=== PATIENT | male | born 1950 | race Caucasian/White ===

== ENCOUNTER 2018-04-28 23:51 | Emergency (ER) | payer MEDICARE, OTHER ==
[~2018-04-28] VITALS: Ht 170.2 cm; Wt 63.5 kg
[~2018-04-28 23:51] MED LIST: CIPRO500 MG PO; CIPROFLOXACIN500 M2 ORAL; COLACE100 MG ORAL; EDARBI40 MG ORAL; HYDROCODON-ACE1 EA15 ORAL; IBUPROFEN600 MG ORAL; KEFLEX500 MG ORAL; NORCO 5-325 TA1 EACH ORAL; PHENAZOPYRIDIN100 MG ORAL; VICODIN 5-5001 EACH PO; ZOFRAN ODT4 MG ORAL
[2018-04-28] MEDS ORDERED: UNOBMED (23:59)
[2018-04-29] MEDS ORDERED: Tetanus/Diptheria/Pertussis Vaccine 0.5ml Syr IM ONE (00:45)
[2018-04-29 02:00] VITALS: BP 122/75
[2018-04-29 04:00] VITALS: BP 129/67
[2018-04-29 05:50] VITALS: BP 129/67
--- NOTE | 2018-04-29 10:26 | Diagnostic Imaging Report ---
Indications: Pain, trauma Technique: Spiral acquisitions obtained through the brain. Angled axial and coronal 5 x 5 mm slices were reconstructed. Total dose length product 1453.5 mGycm. CTDI vol(s) 70.38 mGy. Dose reduction achieved using automated exposure control Comparison: None. Findings: There is age-related enlargement of the ventricles and extra axial CSF spaces. No acute intercranial hemorrhage nor edema, mass effect, nor midline shift. Normal lucas-white differentiation. The calvarium is intact. There is extensive sinus disease. The mastoids are clear. The visualized orbits are unremarkable. Impression: Age-related volume loss. Negative for acute intracranial bleed or mass effect Extensive sinus disease This agrees with the preliminary interpretation provided overnight by [facility]. The CT scanner at [facility] is accredited by the [employer] and the scans are performed using protocols designed to limit radiation exposure to as low as reasonably achievable to attain images of sufficient resolution adequate for diagnostic evaluation.
--- NOTE | 2018-04-29 10:29 | Diagnostic Imaging Report ---
Indications: Pain in forehead after falling Technique: Spiral images obtained through the facial bones. No IV contrast utilized. Multiplanar reconstructions were generated.Total dose length product 780 mGycm. CTDIvol(s) 28 mGy. Dose reduction achieved using automated exposure control Comparison: none Findings: There is minimal bilateral periorbital soft tissue swelling. No acute fractures. There is extensive sinonasal polyposis. There is chronic periosteal thickening of the bilateral maxillary sinus wooten. The optic globes and retroseptal orbits are unremarkable. The mastoids are clear. The posterior nasopharynx, oropharynx, hypopharynx are all unremarkable. The dentition is intact. Impression: No acute bony trauma. Extensive sinonasal polyposis This agrees with the preliminary interpretation provided overnight by [facility]. The CT scanner at [facility] is accredited by the [employer] and the scans are performed using protocols designed to limit radiation exposure to as low as reasonably achievable to attain images of sufficient resolution adequate for diagnostic evaluation.
--- NOTE | 2018-04-29 15:07 | Diagnostic Imaging Report ---
Clinical Indication:Pain in left wrist after falling Technique: 3 views of the left wrist Comparison: None Findings: No acute fractures. No dislocations. The joint spaces are preserved. Impression: Negative
--- NOTE | 2018-04-29 16:51 | Diagnostic Imaging Report ---
Indication: Pain status post fall Technique: 3 views left hand Comparison: none Findings: Positioning is suboptimal; per technologist, patient unable to cooperate fully. There is old healed fracture deformity of the fifth metacarpal shaft. No definite acute fractures. No dislocations. The joint spaces are preserved. Impression: Limited exam. No definite acute process
--- NOTE | 2018-04-29 21:32 | Emergency Room Report ---
History of Present Illness General Chief Complaint: Multiple Trauma/Fall Source: Patient Present Illness HPI 68-year-old male presents to ED for evaluation. Patient brought in by EMS status post trip and fall. Presents with abrasions to face. Complaining of bilateral wrist pain and hand pain. Throbbing, 8 out of 10, nonradiating. Denies photophobia or nausea or vomiting. Denies neck pain. Admits to alcohol use. Denies drug use. No other aggravating relieving factors. Denies any other associated symptoms Allergies: Coded Allergies: NSAIDS (NON-STEROIDAL ANTI-INFLAMMA (Verified Allergy, Severe, sob and hives, 05/07/13) Uncoded Allergies: steroids (Allergy, Mild, rash diff breathing, 12/01/12) Patient History Past Medical History: HTN, other - kidney stones Past Surgical History: none Pertinent Family History: none Social History: Denies: smoking, alcohol use, drug use Immunizations: UTD Reviewed Nursing Documentation: PMH: Agreed; PSxH: Agreed Nursing Documentation-PMH Past Medical History: No History, Except For Hx Cardiac Problems: Yes - heart valve replacement Hx Hypertension: Yes Hx Gastrointestinal Problems: Yes - kidney stones Review of Systems All Other Systems: negative except mentioned in HPI Physical Exam Vital Signs Date Time Temp Pulse Resp B/P (MAP) Pulse Ox O2 Delivery O2 Flow Rate FiO2 04/28/18 23:55 98.1 94 16 115/69 97 Room Air Sp02 EP Interpretation: reviewed, normal General Appearance: no apparent distress, alert, GCS 15, non-toxic Head: normocephalic, other - multiple superficial abrasions to face Eyes: bilateral eye normal inspection, bilateral eye PERRL ENT: hearing grossly normal, normal pharynx, no angioedema, normal voice Neck: full range of motion, no bony tend, supple/symm/no masses Respiratory: chest non-tender, lungs clear, normal breath sounds, speaking full sentences Cardiovascular #1: normal inspection Gastrointestinal: normal inspection Rectal: deferred Genitourinary: no CVA tenderness Musculoskeletal: tender - bilateral wrist Neurologic: alert, oriented x3, responsive, motor strength/tone normal, sensory intact, speech normal Psychiatric: judgement/insight normal, memory normal, mood/affect normal, no suicidal/homicidal ideation Skin: normal inspection Lymphatic: normal inspection Procedures Splinting Splinting : Consent: Verbal Pre-Made Type: velcro Splint: wrist - bilateral Pre-Proc Neuro Vasc Exam: normal Post-Proc Neuro Vasc Exam: normal Patient Tolerated: Well Complications: None Medical Decision Making Diagnostic Impression: Primary Impression: Wrist injury Qualified Codes: S69.90XA - Unspecified injury of unspecified wrist, hand and finger(s), initial encounter Additional Impression: Head injury Qualified Codes: S09.90XA - Unspecified injury of head, initial encounter ER Course Hospital Course 68 yo M presents with multiple abrasions to face, bilatearl wrist pain s/p fall Differential diagnoses include: Fracture, dislocation, sprain, contusion Clinical course Patient placed on stretcher. After initial history and physical, I ordered pain medications, TDAP and imaging studies CT head/facial - no acute process Xrays prelim read shows no acute fracture/dislocation. Healing fracture of the left fifth metacarpal. Patient is ambulating with steady gait. Wounds cleaned. Placed in bilateral wrist splints. Safe for discharge with close outpatient follow-up Diagnosis - wrist injury, head injury Stable and discharged to home. apply ice, keep elevated. weight bear as tolerated. Followup with PMD. Return to ED if symptoms recur or worsen Other X-Ray Diagnostic Results Other X-Ray Diagnostic Results #1: X-Ray ordered: R hand # of Views/Limited Vs Complete: 3 View Indication: Pain EP Interpretation: Yes Interpretation: no dislocation, no soft tissue swelling, no fractures Impression: No acute disease Electronically Signed by: Electronically signed by Eris Capps MD Other X-Ray Diagnostic Results #2: X-Ray ordered: R wrist # of Views/Limited Vs Complete: 3 View Indication: Pain EP Interpretation: Yes Interpretation: no dislocation, no soft tissue swelling, no fractures Impression: No acute disease Electronically Signed by: Electronically signed by Eris Capps MD Other X-Ray Diagnostic Results #3: X-Ray ordered: L wrist # of Views/Limited Vs Complete: 3 View Indication: Pain EP Interpretation: Yes Interpretation: no dislocation, no soft tissue swelling, no fractures Impression: No acute disease Electronically Signed by: Electronically signed by Eris Capps MD Other X-Ray Diagnostic Results #4: X-Ray ordered: L hand # of Views/Limited Vs Complete: 3 View Indication: Pain EP Interpretation: Yes Interpretation: no dislocation, no soft tissue swelling Impression: Other - healing fx L 5th metacarpal Electronically Signed by: Electronically signed by Eris Capps MD CT/MRI/US Diagnostic Results CT/MRI/US Diagnostic Results #1: Imaging Test Ordered: CT Head Impression no acute process CT/MRI/US Diagnostic Results #2: Imaging Test Ordered: CT Facial Bones Impression no acute process Last Vital Signs Date Time Temp Pulse Resp B/P (MAP) Pulse Ox O2 Delivery O2 Flow Rate FiO2 04/29/18 05:50 98.4 78 16 129/67 98 Room Air Status: improved Disposition: HOME, SELF-CARE Condition: Stable Patient Instructions: Head Injury, Adult, [id number] Eris Capps MD Apr 29, 2018 21:32
--- NOTE | 2018-04-30 16:10 | Diagnostic Imaging Report ---
Indication: Pain, trauma, status post fall Technique: 3 views right hand Comparison: none Findings: Positioning is somewhat suboptimal. There is a fracture of the fifth metacarpal shaft. This is displaced anteriorly by one bone width, overrides by approximately 1 cm. No other no definite acute fractures. No dislocations. The joint spaces are preserved Impression: Positive for fifth metacarpal fracture. Findings discussed by phone with Dr. Aguilar in the emergency room at the time of interpretation
--- NOTE | 2018-04-30 16:10 | Diagnostic Imaging Report ---
Clinical Indication:Right wrist pain Technique: 3 views of the right wrist Comparison: None Findings: There is a fracture of the distal fifth metacarpal shaft. This is displaced anteriorly by about one bone width, overrides by about 1 cm. No carpal fracture demonstrated. No dislocations. The joint spaces are preserved. There is ulnar minus variance. Impression: Positive for fifth metacarpal fracture No evidence of carpal fracture Findings discussed by phone with Dr. Aguilar in the emergency room at the time of interpretation
== END 2018-04-29 05:45 | disposition home or self-care (01) ==
LOC: EDUNIT# 23:51 → EDBD 23:51 → EMR 04-29 00:29
DX: S69.90XA Unspecified injury of unspecified wrist, hand and finger(s), initial encounter (principal); S09.90XA Unspecified injury of head, initial encounter; S00.81XA Abrasion of other part of head, initial encounter; W01.0XXA Fall on same level from slipping, tripping and stumbling without subsequent striking against object, initial encounter; Y92.89 Other specified places as the place of occurrence of the external cause; I10 Essential (primary) hypertension; Z23 Encounter for immunization; Z88.8 Allergy status to other drugs, medicaments and biological substances; Z88.6 Allergy status to analgesic agent; Z87.442 Personal history of urinary calculi; Z95.2 Presence of prosthetic heart valve
CPT/HCPCS: 29125; 70450; 70486; 90471; 90715; 99284